=== PATIENT | female | born 1970 ===

== ENCOUNTER 2017-03-14 08:40 | Emergency (ER) | payer BC ==
[2017-03-14 08:54] VITALS: BP 126/89
[2017-03-14] MEDS ORDERED: Acetaminophen TAB* 325 MG PO ONE (09:34)
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
== END 2017-03-14 09:59 | disposition short-term general hospital (02) ==
LOC: UCEAST 08:40
DX: S09.90XA Unspecified injury of head, initial encounter (principal); M54.2 Cervicalgia; W07.XXXA Fall from chair, initial encounter; Y93.9 Activity, unspecified; Y92.9 Unspecified place or not applicable; Y99.9 Unspecified external cause status
CPT/HCPCS: 99204; A9270-GY; G0463

== ENCOUNTER 2017-03-14 10:17 | Emergency (ER) | payer BC ==
--- NOTE | 2017-03-14 11:03 | RAD ---
Indication: Fall, headaches. CT of the brain was performed without IV contrast. Ventricular structures are midline. No midline shift is noted. The extra-axial spaces are unremarkable. There is no evidence of intracranial mass or hemorrhage. No other high or low density lesions are identified. Mastoid air cells and paranasal sinuses are otherwise unremarkable. IMPRESSION: No intracranial mass or hemorrhage is noted.
--- NOTE | 2017-03-14 11:04 | RAD ---
Indication: Fall, neck injury. CT of the cervical spine was obtained in the axial plane. Sagittal and coronal reconstructed images were obtained. The skull base demonstrates no fracture. The C1 ring is intact. The vertebral bodies demonstrates reversal of the normal lordosis. Mild kyphosis is noted from 3 to C3-C5. No fracture is identified. Disc space narrowing at C3-C4, C4-C5 and C5-C6 is noted. No evidence of facet malalignment is noted. IMPRESSION: Degenerative disc disease at C3-C4, C4-C5 and C5-C6. No fracture of the cervical spine is noted. Reversal of the normal lordosis.
--- NOTE | 2017-03-14 11:13 | RAD ---
Indication: Back pain. CT of the lumbar spine was obtained in the axial plane. Sagittal and coronal reconstructed images were obtained. There is straightening of the normal lordosis. The vertebral bodies appear normal in height. There is no fracture. No focal protrusion is identified. Mild disc space narrowing at L3-L4 is noted. The remainder of the disc spaces are well-preserved. The transverse processes sacroiliac joints are grossly unremarkable. IMPRESSION: No fracture of the lumbar spine is noted.
--- NOTE | 2017-03-14 11:30 | ED ---
Head Injury - HPI Summary HPI Summary: 47F presents with head injury while falling off stool yesterday. She was sitting and fell backwards and hit her head on another stool. She denies any LOC. She denies any nausea or vomiting. She has a mild headache that she has been taking Tylenol for. She denies any visual changes but says that her pupils are two different sizes which occurred last time she had a head injury. She also admits to neck and lumbar back pain. She denies any numbness or tingling. She denies any saddle anaesthesia or loss of bowel or bladder. - History Of Current Complaint Chief Complaint: EDHeadInjury Stated Complaint: HEAD INJURY Time Seen by Provider: 03/14/17 10:22 Hx Last Menstrual Period: 2009 Pain Intensity: 5 - Allergies/Home Medications Allergies/Adverse Reactions: Allergies Allergy/AdvReac Type Severity Reaction Status Date / Time Ciprofloxacin [From Cipro] Allergy Severe dizziness, Verified 03/14/17 10:29 lip and face numbness Latex Allergy Severe SKIN Verified 03/14/17 10:29 IRRITATION Sulfa Drugs Allergy Severe Rash Verified 03/14/17 10:29 Oxycodone [From Percocet] Allergy Unknown Unknown Verified 03/14/17 10:29 Reaction Details Codeine AdvReac Intermediate PUT ME TO Verified 03/14/17 10:29 SLEEP FOR 3 DAYS Hydrocodone [From Vicodin] AdvReac Intermediate Constipatio Verified 03/14/17 10 :29 n Penicillins AdvReac Intermediate YEAST Verified 03/14/17 10:29 INFECTION PMH/Surg Hx/FS Hx/Imm Hx Endocrine/Hematology History: Denies: Hx Anticoagulant Therapy, Hx Diabetes, Other Endocrine/Hematological Disorders Cardiovascular History: Denies: Hx Congestive Heart Failure, Other Cardiovascular Problems/Disorders Respiratory History: Denies: Other Respiratory Problems/Disorders GI History: Denies: Other GI Disorders History: Denies: Hx Renal Disease, Other Problems/Disorders Musculoskeletal History: Denies: Other Musculoskeletal History Sensory History: Denies: Other Sensory Impairments Opthamlomology History: Denies: Other Sensory Impairments Neurological History: Denies: Other Neuro Impairments/Disorders Psychiatric History: Denies: Other Psychiatric Issues/Disorders - Cancer History Cancer Type, Location and Year: HX CERVICAL CA - Surgical History Surgery Procedure, Year, and Place: TOTAL HYSTERECTOMY, MULT LAPROSCOPIES FOR ENDOMETRIOSIS; Ventricular Septal Defect closure. appendicitis Infectious Disease History: No Infectious Disease History: Denies: Traveled Outside the [place] in Last 30 Days - Family History Known Family History: Positive: Cardiac Disease, Diabetes Negative: Hypertension - Social History Alcohol Use: Weekly Alcohol Amount: 5 days weekly, had 3 glasses of wine yesterday Substance Use Type: Reports: None Smoking Status (MU): Never Smoked Tobacco Review of Systems Negative: Fever Negative: Chest Pain Negative: Shortness Of Breath Positive: Myalgia - neck and lumbar back Positive: Headache All Other Systems Reviewed And Are Negative: Yes Physical Exam Triage Information Reviewed: Yes Vital Signs On Initial Exam: Initial Vitals Temp Pulse Resp BP Pulse Ox 98.0 F 62 16 126/92 99 03/14/17 10:20 03/14/17 10:20 03/14/17 10:20 03/14/17 10:20 03/14/17 10:20 Vital Signs Reviewed: Yes Appearance: Positive: Well-Appearing Skin: Positive: Warm, Dry Head/Face: Positive: Normal Head/Face Inspection, Other - no step off, racoon eyes, suero sign Eyes: Positive: EOMI, Conjunctiva Clear, Other: - reactive, left eye 1mm greater than right ENT: Positive: Normal ENT inspection, Pharynx normal, TMs normal Respiratory/Lung Sounds: Positive: Clear to Auscultation, Breath Sounds Present Cardiovascular: Positive: Normal, RRR Musculoskeletal: Positive: Other - tender neck and lumbar back with full ROM Neurological: Positive: Sensory/Motor Intact, Alert, Oriented to Person Place, Time, CN Intact II-III, Heel to Toe, Finger to Nose - Edd Coma Scale Best Eye Response: 4 - Spontaneous Best Motor Response: 6 - Obeys Commands Best Verbal Response: 5 - Oriented Coma Scale Total: 15 Diagnostics - Vital Signs Vital Signs Temp Pulse Resp BP Pulse Ox 03/14/17 10:29 61 96 03/14/17 10:27 110/73 03/14/17 10:21 98.0 F 62 16 126/92 99 03/14/17 10:20 98.0 F 62 16 126/92 99 - Laboratory Lab Statement: Any lab studies that have been ordered have been reviewed, and results considered in the medical decision making process. - CT head CT Interpretation: No Acute Changes CT Interpretation Completed By: Radiologist neck CT Interpretation: No Acute Changes CT Interpretation Completed By: Radiologist lumbar CT Interpretation: No Acute Changes CT Interpretation Completed By: Radiologist Head Injury Course/Dx Course Of Treatment: 47F presents with head injury while falling off stool yesterday. She was sitting and fell backwards and hit her head on another stool. She denies any LOC. She denies any nausea or vomiting. She has a mild headache that she has been taking Tylenol for. She denies any visual changes but says that her pupils are two different sizes which occurred last time she had a head injury. She also admits to neck and lumbar back pain. on exam tender across neck and lower back. normal neuro exam. left pupil 1mm greater in diameter but is reactive. CT head, neck, and back normal. patient understands and agrees with plan. - Diagnoses Differential Diagnosis/HQI/PQRI: Cerebral Contusion, Concussion Without LOC, Other - neck pain Provider Diagnoses: Head injury, Neck pain, Back pain Discharge - Discharge Plan Condition: Good Disposition: HOME Patient Education Materials: Head Injury (ED) Referrals: Jackson Zimmerman MD [Primary Care Provider] - Additional Instructions: Place ice on area as needed Take Tylenol or ibuprofen for headache every 6 hours Follow up with primary within 7 days Return to ED if develop vomiting, severe headache, or any new or worsening symptoms
[2017-03-14 11:33] VITALS: BP 114/100
== END 2017-03-14 11:48 | disposition home or self-care (01) ==
LOC: ED 10:17
DX: S09.90XA Unspecified injury of head, initial encounter (principal); M54.2 Cervicalgia; M54.9 Dorsalgia, unspecified; W07.XXXA Fall from chair, initial encounter; Y93.89 Activity, other specified; Y92.9 Unspecified place or not applicable
CPT/HCPCS: 70450; 72125; 72131; 99282